=== PATIENT | female | born 1985 | race Caucasian/White ===

== ENCOUNTER → 2018-08-02 16:01 | Outpatient (CLI) | payer OTHER, SELFPAY ==
--- NOTE | 2018-08-02 16:04 | DI.US.S_ITS ---
PROCEDURE: US OB <= 14 WEEKS FETUS INDICATIONS: INITIAL SIZING AND DATING OUTSIDE/PRIOR DATING DATA: Last menstrual period (LMP): Unknown. LMP-based estimated date of delivery (NEMO): N./A.. First dating scan (date and location): 08/02/18. Estimated date of delivery (NEMO) from first dating scan: 03/25/19. TECHNIQUE: Real-time scanning was performed of the fetus and maternal pelvic organs, with image documentation. COMPARISON: None. FINDINGS: Embryo: [place]-rump length measures 6 mm corresponding to 6 weeks 3 days. Embryonic heart rate measures 143 beats per minute. Measurement variability in dating: +/- 4 weeks by LMP, +/- 7 days by mean sac diameter (use before 6 weeks gestation if crown-rump length not able to be measured), +/- 5 days by crown-rump length (up to 8 weeks 6 days gestation), +/- 7 days by crown-rump length (up to 13 weeks 6 days gestation). Maternal organs: Ovaries within normal limits. Limited images through the kidneys demonstrate no hydronephrosis. IMPRESSION: 6 week 3 day single living IUP. Dictated by: Melvin Michaud A Interpreted: Ranjan Torre MD on 08/03/2018 at 8:03 Approved by: Ranjan Torre M.D. on 08/03/2018 at 10:05
== END ==
PROVIDERS: Family Provider Family Medicine; PCP Family Medicine; Visit Provider Family Medicine
DX: Z34.91 Encounter for supervision of normal pregnancy, unspecified, first trimester (principal); Z3A.01 Less than 8 weeks gestation of pregnancy
CPT/HCPCS: 76801; 76817

== ENCOUNTER → 2024-11-19 09:39 | Outpatient (CLI) | payer OTHER, SELFPAY | PROVIDERS: Family Provider Family Medicine; PCP Family Medicine; Visit Provider Nurse Practitioner Family | DX: J02.9 Acute pharyngitis, unspecified (principal) | CPT/HCPCS: 87070 ==